=== PATIENT | female | born 1975 | race Caucasian/White ===

== ENCOUNTER 2019-12-26 10:37 | Emergency (ER) | payer OTHER ==
[~2019-12-26] VITALS: Ht 170.2 cm; Wt 63.5 kg
[~2019-12-26 10:37] MED LIST: ALLEGRA180 MG PO; AMITRIPTYLINE H10 M1 PO; ZANTAC PO
[2019-12-26] MEDS ORDERED: CYCLOBENZAPRINE5 MG PO (12:12)
[2019-12-26 12:24] VITALS: BP 136/59
== END 2019-12-26 12:25 | disposition home or self-care (01) ==
LOC: ER 10:37
DX: S01.81XA Laceration without foreign body of other part of head, initial encounter (principal); M25.562 Pain in left knee; M54.2 Cervicalgia; R42 Dizziness and giddiness; Z79.899 Other long term (current) drug therapy; Z88.1 Allergy status to other antibiotic agents; V89.2XXA Person injured in unspecified motor-vehicle accident, traffic, initial encounter; Y93.I9 Activity, other involving external motion; Y92.488 Other paved roadways as the place of occurrence of the external cause; Y99.8 Other external cause status